=== PATIENT | male | born 1945 | race Caucasian/White ===

== ENCOUNTER 2021-05-13 08:54 | Emergency (ER) | payer MEDICARE ==
[~2021-05-13 08:54] MED LIST: NORCO 5-325 TA1 EACH PO
[2021-05-13] MEDS ORDERED: ELIQUIS5 MG PO (11:16)
== END 2021-05-13 11:24 | disposition home or self-care (01) ==
LOC: ER1 08:54
DX: I82.432 Acute embolism and thrombosis of left popliteal vein (principal)
CPT/HCPCS: 93971; 99283

== ENCOUNTER → 2022-01-27 | Outpatient (CLI) | payer MEDICARE ==
[~2022-01-27] MED LIST changes: +ELIQUIS5 MG PO
== END ==
LOC: CT 14:17
DX: R91.1 Solitary pulmonary nodule (principal); J84.10 Pulmonary fibrosis, unspecified
CPT/HCPCS: 71270; Q9967